=== PATIENT | male | born 1965 | race Caucasian/White ===

== ENCOUNTER 2019-04-08 13:49 | Emergency (ER) | payer SELFPAY ==
[~2019-04-08] VITALS: Ht 185.4 cm; Wt 113.4 kg
[2019-04-08 14:00] VITALS: BP 129/93
[2019-04-08] MEDS ORDERED: KETOROLAC TROMETH 60MG/2ML VIAL IM ONE (16:00)
== END 2019-04-08 16:08 | disposition home or self-care (01) ==
LOC: ER 13:49
DX: M23.92 Unspecified internal derangement of left knee (principal); Z88.0 Allergy status to penicillin; Z88.2 Allergy status to sulfonamides
CPT/HCPCS: 73562; 96372; 99283; J1885